=== PATIENT | female | born 1980 | race Caucasian/White ===

== ENCOUNTER 2017-01-29 16:37 | Emergency (ER) | payer MEDICAID ==
[2017-01-29 17:06] VITALS: BP 119/63
--- NOTE | 2017-01-29 17:10 | ER Document Report ---
ED Medical Screen (RME) - General Stated Complaint: SORE THROAT Notes: Patient complains of a sore throat for a couple weeks. Does have nasal congestion, no cough. No known fever. I have greeted and performed a rapid initial assessment of this patient. A comprehensive ED assessment and evaluation of the patient, analysis of test results and completion of the medical decision making process will be conducted by additional ED providers. TRAVEL OUTSIDE OF THE [place] IN LAST 30 DAYS: No - Related Data Allergies/Adverse Reactions: No Known Allergies Allergy (Verified 01/29/17 17:09) Past Medical History - Immunizations Immunizations up to date: No Hx Diphtheria, Pertussis, Tetanus Vaccination: No Physical Exam - Vital signs Vitals: Temp Pulse Resp BP Pulse Ox 98.6 F 83 18 119/63 98 01/29/17 17:02 01/29/17 17:02 01/29/17 17:02 01/29/17 17:02 01/29/17 17:02 - HEENT Notes: Row with mild erythema, no exudates. Course - Vital Signs Vital signs: Temp Pulse Resp BP Pulse Ox 98.6 F 83 18 119/63 98 01/29/17 17:02 01/29/17 17:02 01/29/17 17:02 01/29/17 17:02 01/29/17 17:02
--- NOTE | 2017-01-29 18:21 | ER Document Report ---
ED ENT - General Chief Complaint: Sore Throat Stated Complaint: SORE THROAT Mode of Arrival: Ambulatory Information source: Patient Notes: This is a 37-year-old healthy female who presents for evaluation of sore throat. She has had a sore throat off and on for a couple weeks but the past few days it has become more severe. Also last night she developed subjective fevers and chills. His morning she has had more pain with swallowing. She is still tolerating po food and drink without difficulty. She has had nausea but no vomiting. No known sick contacts. No recent travel. TRAVEL OUTSIDE OF THE [place] IN LAST 30 DAYS: No - Related Data Allergies/Adverse Reactions: No Known Allergies Allergy (Verified 01/29/17 17:09) Past Medical History - General Information source: Patient - Social History Smoking Status: Current Every Day Smoker Chew tobacco use (# tins/day): No Frequency of alcohol use: Occasional Drug Abuse: None Family History: Reviewed & Not Pertinent - Medical History Medical History: Negative Endocrine Medical History: Denies: Hx Diabetes Mellitus Type 2 Renal/ Medical History: Denies: Hx Peritoneal Dialysis Surgical Hx: Negative - Immunizations Immunizations up to date: No Hx Diphtheria, Pertussis, Tetanus Vaccination: No Review of Systems - Review of Systems Notes: REVIEW OF SYSTEMS: CONSTITUTIONAL : Subjective fever as per history of present illness. EENT: Denies eye, ear, or mouth pain or symptoms. Denies nasal or sinus congestion. Sore throat as per history of present illness CARDIOVASCULAR: Denies chest pain. RESPIRATORY: Denies cough, cold, or chest congestion. Denies shortness of breath, difficulty breathing, or wheezing. GASTROINTESTINAL: Denies abdominal pain. Nausea as per history of present illness denies vomiting or diarrhea. GENITOURINARY: Denies difficulty urinating, painful urination, burning, frequency, or blood in urine. FEMALE GENITOURINARY: Denies vaginal bleeding, abnormal or irregular periods. LMP: 3/5 MUSCULOSKELETAL: Denies neck or back pain or joint pain or swelling. SKIN: Denies rash or skin lesions. HEMATOLOGIC : Denies easy bruising or bleeding. LYMPHATIC: Denies swollen, enlarged glands. NEUROLOGICAL: Denies altered mental status or loss of consciousness. Denies headache. ALL OTHER SYSTEMS REVIEWED AND NEGATIVE. Physical Exam - Vital signs Vitals: Temp Pulse Resp BP Pulse Ox 98.6 F 83 18 119/63 98 01/29/17 17:02 01/29/17 17:02 01/29/17 17:02 01/29/17 17:02 01/29/17 17:02 - Notes Notes: PHYSICAL EXAMINATION: GENERAL: Well-appearing, well-nourished and in no acute distress. Pleasant and conversant. HEAD: Atraumatic, normocephalic. EYES: Pupils equal round and reactive to light, extraocular movements intact, sclera anicteric, conjunctiva are normal. ENT: Moist mucous membranes. Posterior oropharynx with erythema, no edema, but there are bilateral tonsillar exudates noted. Uvula is midline with no PARA OPERATOR NECK: Normal range of motion, supple with mild bilateral tender anterior cervical lymphadenopathy LUNGS: Breath sounds clear to auscultation bilaterally and equal. No wheezes rales or rhonchi. HEART: Regular rate and rhythm without murmurs ABDOMEN: Soft, nontender, normoactive bowel sounds. No guarding, no rebound. No masses appreciated. EXTREMITIES: Normal range of motion, no edema NEUROLOGICAL: Cranial nerves grossly intact. Normal speech. No gross focal motor or sensory deficits appreciated. PSYCH: Normal mood, normal affect. SKIN: Warm, Dry, normal turgor, no rashes or lesions noted. Course - Re-evaluation Re-evalutation: 01/29/17 18:22 Bicillin given in the ER. - Vital Signs Vital signs: Temp Pulse Resp BP Pulse Ox 98.6 F 83 18 119/63 98 01/29/17 17:02 01/29/17 17:02 01/29/17 17:02 01/29/17 17:02 01/29/17 17:02 Discharge - Discharge Clinical Impression: Exudative pharyngitis Condition: Stable Disposition: HOME, SELF-CARE Additional Instructions: SORE THROAT: Sore throats may be caused by viruses, bacteria, or fungi. Most are due to a virus, and must get better on their own. Bacterial sore throats, particularly those due to "strep," need treatment with antibiotics. If an antibiotic is prescribed, be sure to take the medication for a full 10 days. Failure to take the antibiotic can result in complications such as rheumatic fever. Sometimes, an injection of antibiotics is given instead of pills or liquid. This single "shot" is equal in effectiveness to the oral medication. To relieve symptoms, take acetaminophen for pain. Sip clear liquids frequently, or eat popsicles or ice chips. Anesthetic sprays or lozenges may help. Make sure the air in the room is not too dry. Avoid using decongestants or antihistamines. Call the doctor if there is no improvement in two days, or if you have difficulty breathing, increasing throat pain, high fever, rash, or frequent vomiting. FOLLOW-UP CARE: If you have been referred to a physician for follow-up care, call the physician s office for an appointment as you were instructed or within the next two days. If you experience worsening or a significant change in your symptoms, notify the physician immediately or return to the Emergency Department at any time for re-evaluation. Prescriptions: Ibuprofen [Motrin 600 Mg Tablet] 600 mg PO TID #15 tablet Forms: Smoking Cessation Education
[2017-01-29] MEDS ORDERED: PENICILLIN G BENZATHINE 1.2 MILLION UNIT/2 ML DISP.SYRIN IM ONE (18:23)
== END 2017-01-29 19:01 | disposition home or self-care (01) ==
LOC: ER 16:37
DX: J02.9 Acute pharyngitis, unspecified (principal); R50.9 Fever, unspecified; F17.200 Nicotine dependence, unspecified, uncomplicated; R11.0 Nausea
CPT/HCPCS: 99283; 96372; 87070; 87880; J0561

== ENCOUNTER 2018-05-22 12:03 | Emergency (ER) | payer MEDICAID ==
[2018-05-22] MEDS ORDERED: LIDOCAINE 1% INJ-PF (10 MG/ML) 30 ML SDV INJ ONE (12:39)
--- NOTE | 2018-05-22 12:41 | ER Document Report ---
ED Medical Screen (RME) - General Chief Complaint: Abscess Stated Complaint: LESIONS IN LEFT ARMPIT Time Seen by Provider: 05/22/18 12:38 Mode of Arrival: Ambulatory Information source: Patient Notes: 38-year-old female with no reported past medical history presents with complaint of left axillary pain and swelling that have been ongoing for 3 days. Patient states that she has had previous abscesses that have self resolved. She describes this as a burning throbbing pain and she is unable to put her arm down by her side. Patient denies history of MRSA. Last menstrual period was May 12, 2018 I have greeted and performed a rapid initial assessment of this patient. A comprehensive ED assessment and evaluation of the patient including analysis of labs and imaging ( if obtained) and completion of medical decision making will be conducted by an additional ED provider. PHYSICAL EXAMINATION: GENERAL: Well-appearing, well-nourished and in no acute distress. HEAD: Atraumatic, normocephalic. EYES: Pupils equal round extraocular movements intact, conjunctiva are normal. ENT: Nares patent NECK: Normal range of motion LUNGS: No respiratory distress Musculoskeletal: Normal range of motion NEUROLOGICAL: Normal speech, normal gait. PSYCH: Normal mood, normal affect. SKIN: Large area of induration, fluctuance, erythema and tenderness under the left axilla. TRAVEL OUTSIDE OF THE [place] IN LAST 30 DAYS: No - Related Data Allergies/Adverse Reactions: No Known Allergies Allergy (Verified 05/22/18 12:32) Past Medical History - Social History Chew tobacco use (# tins/day): No Frequency of alcohol use: None Drug Abuse: None Endocrine Medical History: Denies: Hx Diabetes Mellitus Type 2 Renal/ Medical History: Denies: Hx Peritoneal Dialysis - Immunizations Immunizations up to date: No Hx Diphtheria, Pertussis, Tetanus Vaccination: No Physical Exam - Vital signs Vitals: Temp Pulse Resp BP Pulse Ox 98.5 F 84 18 118/54 L 100 05/22/18 12:12 05/22/18 12:12 05/22/18 12:12 05/22/18 12:12 05/22/18 12:12 Course - Vital Signs Vital signs: Temp Pulse Resp BP Pulse Ox 98.5 F 84 18 118/54 L 100 05/22/18 12:12 05/22/18 12:12 05/22/18 12:12 05/22/18 12:12 05/22/18 12:12 Doctor's Discharge - Discharge Referrals: HOLLY GARCIA MD [Primary Care Provider] - Follow up as needed
--- NOTE | 2018-05-22 13:32 | ER Document Report ---
ED General - General Chief Complaint: Abscess Stated Complaint: LESIONS IN LEFT ARMPIT Time Seen by Provider: 05/22/18 12:38 Mode of Arrival: Ambulatory TRAVEL OUTSIDE OF THE [place] IN LAST 30 DAYS: No - HPI Notes: 38-year-old female presents with left-sided axillary abscess. Patient states proximal and once a year she gets some swelling and redness in this area but it goes away with compresses. Over the last several days had increasing pain and swelling more than usual. No drainage. Throbbing, aching pain, nonradiating. Gradual onset. No other modifying factors, no other associated symptoms, no other provocative or palliative factors. No history of MRSA - Related Data Allergies/Adverse Reactions: No Known Allergies Allergy (Verified 05/22/18 12:32) Past Medical History - General Information source: Patient - Social History Smoking Status: Current Every Day Smoker Chew tobacco use (# tins/day): No Frequency of alcohol use: None Drug Abuse: None Family History: Reviewed & Not Pertinent Patient has suicidal ideation: No Patient has homicidal ideation: No - Medical History Medical History: Negative Endocrine Medical History: Denies: Hx Diabetes Mellitus Type 2 Renal/ Medical History: Denies: Hx Peritoneal Dialysis - Immunizations Immunizations up to date: No Hx Diphtheria, Pertussis, Tetanus Vaccination: No Review of Systems - Review of Systems Notes: Review of systems as in history of present illness, otherwise no significant headache, chest pain, abdominal pain. Physical Exam - Vital signs Vitals: Temp Pulse Resp BP Pulse Ox 98.5 F 84 18 118/54 L 100 05/22/18 12:12 05/22/18 12:12 05/22/18 12:12 05/22/18 12:12 05/22/18 12:12 - Notes Notes: General: Well devloped, no acute distress. HEENT: Normocephalic, atraumatic. Pupils equal round reactive to light. Mucosa moist. No JVD. Chest: No trauma, normal excursion. Respiratory: Good air exchange, normal excursion. Cardiac: Regular rhythm Abdomen: Soft, benign. Nondistended. Back: No asymmetry or gross abnormality. Motor: Grossly normal power and tone. Neurologic: Alert, nonfocal. Vascular: Well perfused Skin: No petechiae or purpura Axillary region shows a approximately 3-1/2 x 5 cm area of irregular fluctuance , slight induration, minimal erythema. Course - Re-evaluation Re-evalutation: 05/22/18 13:34 Well-appearing female with axillary abscess, may be ingrown hair versus hidradenitis. Plan proceed with I&D, outpatient follow-up. No indication for antibiotics. No significant cellulitis component. Will treat with hydrocodone. 05/22/18 13:35 Risks and benefits were discussed, informed consent was obtained. After anesthesia locally with 1% lidocaine without epinephrine, a 3.5 cm incision is made with immediate return of a purulent white beige material. It is probed, no loculations. Wound is then rugated and packed, no complications. - Vital Signs Vital signs: Temp Pulse Resp BP Pulse Ox 98.5 F 84 18 118/54 L 100 05/22/18 12:12 05/22/18 12:12 05/22/18 12:12 05/22/18 12:12 05/22/18 12:12 Discharge - Discharge Clinical Impression: Abscess Condition: Good Disposition: HOME, SELF-CARE Instructions: Abscess ([facility]) Additional Instructions: Leave packing in for 2-3 days. After that, may remove and rinse several times daily Prescriptions: Hydrocodone/Acetaminophen [Hydrocodon-Acetaminophen 5-325] 1 each PO Q6 #12 tablet Referrals: HOLLY GARCIA MD [NO LOCAL MD] - Follow up in 3-5 days
[2018-05-22 14:00] VITALS: BP 119/53
== END 2018-05-22 14:00 | disposition home or self-care (01) ==
LOC: ER 12:03
PROC: 0H9CXZZ Drainage of Left Upper Arm Skin, External Approach (ICD-10-PCS; principal; 2018-05-22)
DX: L02.412 Cutaneous abscess of left axilla (principal); F17.200 Nicotine dependence, unspecified, uncomplicated
CPT/HCPCS: 99283; 10060; J3490

== ENCOUNTER 2019-03-15 06:29 | Inpatient (IN) | payer MEDICAID ==
[2019-03-15] MEDS ORDERED: RINGERS SOLUTION,LACTATED 300 ML IV ONE (06:39)
[2019-03-15] MEDS ORDERED: RINGERS SOLUTION,LACTATED 1,000 ML IV PRN (06:39)
[2019-03-15 07:14] LABS: ABSOLUTE BASOPHILS # (AUTO) 0.1 10^3/uL (0.0-0.2); ABSOLUTE EOSINOPHILS # (AUTO) 0.2 10^3/uL (0.0-0.6); ABSOLUTE LYMPHOCYTES (AUTO) 2.2 10^3/uL (0.5-4.7); ABSOLUTE NEUT (AUTO) 13.2 10^3/uL (1.7-8.2); BASOPHILS % (AUTO) 0.3 % (0-2); EOSINOPHILS % (AUTO) 1.2 % (0-6); HEMATOCRIT 33.6 % (36.0-47.0); HEMOGLOBIN 11.5 g/dL (12.0-15.5); LYMPHOCYTES % (AUTO) 13.1 % (13-45); MEAN CORPUSCULAR HEMOGLOBIN 33.5 pg (27.0-33.4); MEAN CORPUSCULAR HGB CONC 34.3 g/dL (32.0-36.0); MEAN CORPUSCULAR VOLUME 98 fl (80-97); MONOCYTES % (AUTO) 6.1 % (3-13); PLATELET COUNT 230 10^3/uL (150-450); RED BLOOD COUNT 3.45 10^6/uL (3.72-5.28); RED CELL DISTRIBUTION WIDTH 13.7 % (11.5-14.0); SEGMENTED NEUTROPHILS % (AUTO) 79.3 % (42-78); TOTAL CELLS COUNTED % (AUTO) 100 %; WHITE BLOOD COUNT 16.6 10^3/uL (4.0-10.5)
[2019-03-15] MEDS ORDERED: OXYTOCIN/NORMAL SALINE 20 UNIT/1,000 ML RTUINJ ONE ×2 (07:29→23:20)
[2019-03-15] MEDS ORDERED: MISOPROSTOL 0.2 MG TABLET ONE (07:29)
[2019-03-15] MEDS ORDERED: LIDOCAINE 1% INJ-PF (10 MG/ML) 30 ML SDV ONE (07:29)
[2019-03-15] MEDS: OXYTOCIN/NORMAL SALINE 20 UNIT/1,000 ML RTUINJ IV PRN ×2 (08:05→23:23)
[2019-03-15 08:37] LABS: APPEARANCE,URINE CLEAR; BILIRUBIN,URINE NEGATIVE (NEGATIVE); COLOR,URINE YELLOW; GLUCOSE, URINE NEGATIVE (NEGATIVE); KETONES,URINE NEGATIVE (NEGATIVE); LEUKOCYTE ESTERASE,URINE NEGATIVE (NEGATIVE); NITRITE,URINE NEGATIVE (NEGATIVE); PROTEIN,URINE NEGATIVE (NEGATIVE); URINE SPECIFIC GRAVITY 1.018; UROBILINOGEN,URINE NEGATIVE mg/dL (<2.0)
[2019-03-15 09:00] LABS: URINE AMPHETAMINES SCREEN NEGATIVE; URINE BARBITURATES SCREEN NEGATIVE; URINE BENZODIAZEPINES SCREEN NEGATIVE; URINE COCAINE SCREEN NEGATIVE; URINE METHADONE SCREEN NEGATIVE; URINE PHENCYCLIDINE SCREEN NEGATIVE
[2019-03-15 09:01] LABS: URINE MARIJUANA (THC) SCREEN UNCONFIRMED POSITIVE
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
[2019-03-15] MEDS ORDERED: NALBUPHINE HCL INJ 10 MG/1 ML AMPULE ONE (12:52)
[2019-03-15] MEDS ORDERED: PROMETHAZINE HCL INJ 25 MG/1 ML VIAL ONE (12:52)
[2019-03-15] MEDS ORDERED: NALBUPHINE HCL INJ 10 MG/1 ML AMPULE IV ONE (12:57)
[2019-03-15] MEDS ORDERED: PROMETHAZINE HCL INJ 25 MG/1 ML VIAL IV ONE (12:57)
[2019-03-15] MEDS ORDERED: EPHEDRINE SULFATE INJ 50 MG/1 ML AMPULE ONE (16:59)
[2019-03-15] MEDS ORDERED: FENTANYL/BUPIVACAINE/NS/PF 300 MCG/150 ML RTUINJ EPI ONE (16:59)
[2019-03-15] MEDS ORDERED: BUPIVACAINE HCL 0.25 % INJ/PF (2.5 MG/1 ML) 30 ML VIAL ONE (17:00)
[2019-03-15] MEDS ORDERED: ONDANSETRON HCL INJ/PF 4 MG/2 ML SDV ONE ×2 (21:59→22:36)
[2019-03-15] MEDS ORDERED: METHYLERGONOVINE MALEATE INJ/PF 0.2 MG/1 ML AMPULE ONE (23:06)
[2019-03-15] MEDS ORDERED: OXYTOCIN/NORMAL SALINE 20 UNIT/1,000 ML RTUINJ IV PRN ×2 (23:24→23:25)
[2019-03-15] MEDS ORDERED: DIPH/PERTUSS(ACELL)/TETANUS VAC/PF 0.5 ML SYR (>=10YO) IM PRN (23:25)
[2019-03-15] MEDS ORDERED: PROMETHAZINE HCL 25 MG SUPP.RECT PR PRN (23:25)
[2019-03-15] MEDS ORDERED: NA PHOS,M-B/NA PHOS,DI-BA (ADULT) 133 ML ENEMA PR PRN (23:25)
[2019-03-15] MEDS ORDERED: MAGNESIUM HYDROXIDE SUSP 30 ML UDCUP PO PRN (23:25)
[2019-03-15] MEDS ORDERED: BENZOCAINE/MENTHOL AEROSOL SPRAY 56 ML TOP PRN (23:25)
[2019-03-15] MEDS ORDERED: DIBUCAINE 1% OINTMENT 56 GM TP PRN (23:25)
[2019-03-15] MEDS ORDERED: DIPHENHYDRAMINE HCL 25 MG CAPSULE PO PRN (23:25)
[2019-03-15] MEDS ORDERED: MEASLES,MUMPS&RUBELLA VACC/PF 0.5 ML VIAL SUBCUT PRN (23:25)
[2019-03-15] MEDS ORDERED: ACETAMINOPHEN 325 MG TABLET PO PRN (23:25)
[2019-03-15] MEDS ORDERED: PSEUDOEPHEDRINE HCL 30 MG TABLET PO PRN (23:25)
[2019-03-15] MEDS ORDERED: GLYCERIN/WITCH HAZEL LEAF 1 EACH MED..WIPE TP PRN (23:25)
[2019-03-15] MEDS ORDERED: PROMETHAZINE HCL 25 MG TABLET PO PRN (23:25)
[2019-03-15] MEDS ORDERED: ACETAMINOPHEN WITH CODEINE #3 TABLET PO PRN (23:25)
[2019-03-15] MEDS ORDERED: ZOLPIDEM TARTRATE 5 MG TABLET PO PRN (23:25)
[2019-03-15] MEDS ORDERED: PROMETHAZINE HCL INJ 25 MG/1 ML VIAL IV PRN (23:25)
[2019-03-15] MEDS ORDERED: ACETAMINOPHEN WITH CODEINE #3 TABLET ONE (23:47)
[2019-03-15] MEDS: ACETAMINOPHEN WITH CODEINE #3 TABLET PO PRN (23:50)
[2019-03-15] MEDS ORDERED: METHYLERGONOVINE MALEATE INJ/PF 0.2 MG/1 ML AMPULE IM ONE (23:59)
[2019-03-15] MEDS ORDERED: MISOPROSTOL 0.1 MG TABLET PR ONE (23:59)
[2019-03-16] MEDS: IBUPROFEN 800 MG TABLET PO SCH ×3 (06:21→21:34)
[2019-03-16] MEDS: FAMOTIDINE 20 MG TABLET PO SCH ×3 (06:26→21:42)
[2019-03-16 07:18] LABS: HEMATOCRIT 29.5 % (36.0-47.0); HEMOGLOBIN 10.2 g/dL (12.0-15.5); MEAN CORPUSCULAR HEMOGLOBIN 33.9 pg (27.0-33.4); MEAN CORPUSCULAR HGB CONC 34.8 g/dL (32.0-36.0); MEAN CORPUSCULAR VOLUME 98 fl (80-97); PLATELET COUNT 198 10^3/uL (150-450); RED BLOOD COUNT 3.02 10^6/uL (3.72-5.28); RED CELL DISTRIBUTION WIDTH 13.7 % (11.5-14.0)
[2019-03-16 08:09] LABS: WHITE BLOOD COUNT 31.3 10^3/uL (4.0-10.5)
[2019-03-16] MEDS: DOCUSATE SODIUM 100 MG CAPSULE PO SCH ×2 (09:54→17:01)
[2019-03-16] MEDS: FERROUS SULFATE 325 MG TABLET PO SCH ×2 (09:54→17:01)
[2019-03-16] MEDS: PRENATAL VITAMIN W DHA CAPSULE PO SCH (09:54)
[2019-03-16] MEDS: CEFAZOLIN 2 GM/D5W RTU 2 GM/50 ML RTUPB IV SCH ×3 (09:55→21:34)
[2019-03-16] MEDS: SENNOSIDES/DOCUSATE 8.6-50 MG 1 EACH TABLET PO SCH (09:55)
--- NOTE | 2019-03-16 10:10 | PDOC PROGRESS REPORT ---
Subjective-OB Progress Note for:: 03/16/19 Physical Exam (OB) Vital Signs: Temp Pulse Resp BP Pulse Ox 98.1 F 89 16 91/60 L 99 03/16/19 08:11 03/16/19 08:11 03/16/19 08:11 03/16/19 08:11 03/16/19 08:11 Intake & Output 03/15/19 03/16/19 03/17/19 06:59 06:59 06:59 Intake Total 92 Output Total 1883 Balance -1791 Weight 85.8 kg - Lochia Lochia Amount: Small 10-25 ml Lochia Color: Rubra/Red - Abdomen Description: Soft, Round Hernia Present: No Bowel Sounds: Normoactive Flatus Presence: Present Stool: No Fundal Description: Firm, Midline Fundal Height: u/u - u/2 Objective-Diagnostic Laboratory: 03/16/19 06:35 03/16/19 06:35 WBC 31.3 H* RBC 3.02 L Hgb 10.2 L Hct 29.5 L MCV 98 H MCH 33.9 H MCHC 34.8 RDW 13.7 Plt Count 198
[2019-03-16] MEDS: ACETAMINOPHEN WITH CODEINE #3 TABLET PO PRN (10:17)
[2019-03-16 13:11] LABS: PATH REVIEW PATHOLOGIST REVIEWED
[2019-03-17] MEDS: CEFAZOLIN 2 GM/D5W RTU 2 GM/50 ML RTUPB IV SCH ×2 (03:29→09:07)
[2019-03-17] MEDS: IBUPROFEN 800 MG TABLET PO SCH (05:23)
[2019-03-17 08:15] VITALS: BP 97/54
[2019-03-17 08:40] LABS: ABSOLUTE BASOPHILS # (AUTO) 0.1 10^3/uL (0.0-0.2); ABSOLUTE EOSINOPHILS # (AUTO) 0.2 10^3/uL (0.0-0.6); ABSOLUTE LYMPHOCYTES (AUTO) 2.2 10^3/uL (0.5-4.7); ABSOLUTE NEUT (AUTO) 13.3 10^3/uL (1.7-8.2); BASOPHILS % (AUTO) 0.5 % (0-2); EOSINOPHILS % (AUTO) 1.4 % (0-6); HEMATOCRIT 25.8 % (36.0-47.0); HEMOGLOBIN 8.9 g/dL (12.0-15.5); LYMPHOCYTES % (AUTO) 13.1 % (13-45); MEAN CORPUSCULAR HEMOGLOBIN 33.5 pg (27.0-33.4); MEAN CORPUSCULAR HGB CONC 34.4 g/dL (32.0-36.0); MEAN CORPUSCULAR VOLUME 97 fl (80-97); PLATELET COUNT 201 10^3/uL (150-450); RED BLOOD COUNT 2.65 10^6/uL (3.72-5.28); RED CELL DISTRIBUTION WIDTH 13.7 % (11.5-14.0); TOTAL CELLS COUNTED % (AUTO) 100 %; WHITE BLOOD COUNT 16.8 10^3/uL (4.0-10.5)
[2019-03-17] MEDS: FAMOTIDINE 20 MG TABLET PO SCH (09:07)
[2019-03-17] MEDS: DOCUSATE SODIUM 100 MG CAPSULE PO SCH (09:08)
[2019-03-17] MEDS: SENNOSIDES/DOCUSATE 8.6-50 MG 1 EACH TABLET PO SCH (09:08)
[2019-03-17] MEDS: FERROUS SULFATE 325 MG TABLET PO SCH (09:08)
[2019-03-17] MEDS: PRENATAL VITAMIN W DHA CAPSULE PO SCH (09:08)
--- NOTE | 2019-03-17 10:47 | PDOC DISCHARGE SUMMARY ---
Final Diagnosis Discharge Date: 03/17/19 - Final Diagnosis (1) Cannabis abuse, unspecified Is this a current diagnosis for this admission?: Yes (2) Encounter for induction of labor Is this a current diagnosis for this admission?: Yes (3) First degree laceration of perineum during delivery, Is this a current diagnosis for this admission?: Yes (4) Shoulder (girdle) dystocia during labor and delivery, delivered Is this a current diagnosis for this admission?: Yes Discharge Data - Discharge Medication Prescriptions: Ibuprofen [Motrin 800 mg Tablet] 800 mg PO Q8HP PRN #60 tablet PRN Reason: Vit/Dha [ Multi + Dha Capsule] 1 cap PO DAILY #90 capsule Home Medications: Docusate Sodium [Colace 100 mg Capsule] 100 mg PO TID capsule 03/17/19 Ferrous Sulfate [Feosol 325 mg Tablet] 325 mg PO DAILY tablet 03/17/19 Ibuprofen [Motrin 800 mg Tablet] 800 mg PO Q8HP PRN #60 tablet 03/17/19 Vit/Dha [ Multi + Dha Capsule] 1 cap PO DAILY #90 capsule 03/17/19 Procedures: NST Intrapartum Procedure(s): Spontaneous Vaginal Delivery Complication(s): Laceration-Perineal Laceration-Degree: 1st - Diagnosis Test Laboratory: Temp Pulse Resp BP Pulse Ox 97.8 F 63 16 97/54 L 98 03/17/19 07:35 03/17/19 07:35 03/17/19 07:35 03/17/19 07:35 03/17/19 07:35 03/15/19 03/15/19 03/16/19 06:38 06:51 06:35 RBC 3.45 L 3.02 L Hgb 11.5 L 10.2 L Hct 33.6 L 29.5 L Urine Opiates Screen NEGATIVE 03/17/19 07:29 RBC 2.65 L Hgb 8.9 L Hct 25.8 L Urine Opiates Screen - Discharge information/Instructions Discharge Activity: Balance Activity w/Rest, Pelvic Rest Discharge Diet: Regular Disposition: HOME, SELF-CARE Follow up with: [facility] in: 4, Weeks
--- NOTE | 2019-03-23 08:43 | Delivery Summary ---
Del Sum A-C Datetime Report Generated by CPN: 03/23/2019 08:38 DELIVERY PERSONNEL DELIVERY PERSONNEL: [id number] Delivery Doctor:: Pham Trevino MD Labor and Delivery Nurse:: Yanique Shields RN Labor and Delivery Nurse:: Fiorella Rodriguez RN Brick Layer/SNUBBER: Genie Johnson, ST MATERNAL INFORMATION Delivery Anesthesia: Epidural Medications After Delivery: Pitocin Bolus-Please Comment; Pitocin Drip 20 Units/1000ml NSS; Methergine 0.2mg IM; Cytotec 1000mcg Per Rectum/Vagina Meds After Delivery Comment: Pitocin 20 units in 1 L NS bolusing per order Estimated Blood Loss (ml): 600 Maternal Complications: None Provider Comments: VFI delivered in LORI presentation. No nuchal cord. Head delivered then Neris and Suprapubic pressure with gentle downward movement delivered shoulder dystocia after 40sec. Body delivered easily. Placenta delivered intact spontaneously. Uterine atony (mostly lower uterine segment) improved with methergine placed into lower uterine segment and IV pitocin and 1000mcg of cytotec MD. 1st degree perineal laceration repaired in usual fashion. Catheter to be replaced due to intermittent lower uterine segment atony to maintain empty bladder. Mother and baby stable upon provider leaving the room. LABOR SUMMARY EDC: 03/08/2019 00:00 No. Babies in Womb: 1 Attempted: No Labor Anesthesia: Epidural LABOR INFORMATION Reason for Induction: Post Dates Onset of Labor: 03/15/2019 15:57 Complete Dilatation: 03/15/2019 22:29 Oxytocin: Induction Group B Beta Strep: Negative Antibiotics # of Doses: 0 Antibiotics Time of Last Dose: n/a Name of Antibiotic Given: n/a Steroids Given: None Reason Steroids Not Administered: Not Applicable MEMBRANES Membranes Rupture Method: Artificial Rupture of Membranes: 03/15/2019 15:57 Length of Rupture (hr): 7.03 Amniotic Fluid Color: Clear Amniotic Fluid Amount: Small Amniotic Fluid Odor: Normal STAGES OF LABOR Stage 1 hr: 6 Stage 1 min: 32 Stage 2 hr: 0 Stage 2 min: 30 Stage 3 hr: 24 Stage 3 min: 3 Total Time in Labor hr: 31 Total Time in Labor min: 5 VAGINAL DELIVERY Episiotomy: None Laceration #1: Perineal Laceration Extension #1: First Degree Laceration Repair: Yes Laceration Repair Note: 1st degree perineal laceration repaired in usual fashion Sponge Count Correct: Yes Sharps Count Correct: Yes Sharps Count Correct: Yes CSECTION DELIVERY Primary Indication: N/A Secondary Indication: N/A CSection Incidence: N/A Labor: N/A Elective: N/A CSection Incision: N/A BABY A INFORMATION Delivery Date/Time: 03/15/2019 22:59 Method of Delivery: Vaginal Born in Route : No : N/A Forceps: N/A Vacuum Extraction: N/A Shoulder Dystocia : Yes SHOULDER DYSTOCIA BABY A Delivery of Head: 03/15/2019 22:58 Time Head to Delivery : 1.0 1st Intervention to Resolve: McRobert's Maneuver 2nd Intervention to Resolve: Suprapubic Pressure Verify NO Fundal Pressure: No Fundal Pressure Applied Arm Under Symphisis at Del: Right Shoulder Dystocia Comments: 40 second shoulder dystocia PRESENTATION/POSITION BABY A Presentation: Cephalic Cephalic Presentation: Vertex Vertex Position: Right Occipital Anterior Breech Presentation: N/A PLACENTA INFORMATION BABY A Placenta Delivery Time : 03/16/2019 23:02 Placenta Method of Delivery: Spontaneous Placenta Method of Delivery: Spontaneous Placenta Status: Delivered SCORES BABY A Heart Rate 1 min: >100 bpm Resp Effort 1 min: Good Cry Reflex Irritability 1 min: Cough or Sneeze or Pulls Away Muscle Tone 1 min: Active Motion Color 1 min: Body Beatrice, Extremities Blue Resuscitation Effort 1 min: Tactile Stimulation SCORE 1 MIN: 9 Heart Rate 5 min: >100 bpm Resp Effort 5 min: Good Cry Reflex Irritability 5 min: Cough or Sneeze or Pulls Away Muscle Tone 5 min: Active Motion Color 5 min: Completely Beatrice Resuscitation Effort 5 min: Tactile Stimulation SCORE 5 MIN: 10 INFORMATION BABY A Gestational Age at Delivery: 41.0 Gestational Status: Late Term- 41- 41.6 Weeks Infant Outcome : Liveborn Infant Condition : Stable Infant Sex: Female Infant Sex: Female IDENTIFICATION BABY A Verification Date/Time: 03/15/2019 23:42 ID Band Number: [id number] Mother's Name Verified: Yes RN Verifying : ZhaneANA Vazquez Additional Verifying Personnel: Karan Shields RN WEIGHT/LENGTH BABY A Infant Birthweight (gm): 4173 Weight (lb): 9 Weight (oz): 3 Length (in): 20.75 Infant Length (cm): 52.71 CORD INFORMATION BABY A No. Cord Vessels: 3 Nuchal Cord : N/A Cord Blood Taken: Yes-For Eval (Mom's Blood Type - or O+) Suction: Mouth; Nose ASSESSMENT BABY A Infant Complications: None Physical Findings at Delivery: Molding of the Head Infant Respirations: Appears Normal Skin to Skin: Yes Skin to Skin: Yes Clerical Support Specialist/ALS Called : No Care By: Dane RodriguezKATIE Transferred To: Remains with Mother BABY B INFORMATION : N/A SIGNATURES Signature: with User ID: [email or web address]
== END 2019-03-17 13:27 | disposition home or self-care (01) | DRG 807 ==
LOC: LR 06:29 → 2S 03-16 01:09
PROVIDERS: ADMIT Obstetrics & Gynecology; ATTEND Student in an Organized Health Care Education/Training Program
PROC: 10E0XZZ Delivery of Products of Conception, External Approach (ICD-10-PCS; principal; 2019-03-15)
PROC: 0HQ9XZZ Repair Perineum Skin, External Approach (ICD-10-PCS; 2019-03-15)
DX: O99.324 Drug use complicating childbirth (principal); Z37.0 Single live birth; O70.0 First degree perineal laceration during delivery; O62.2 Other uterine inertia; F12.10 Cannabis abuse, uncomplicated; O66.0 Obstructed labor due to shoulder dystocia; O48.0 Post-term pregnancy; Z87.891 Personal history of nicotine dependence; Z3A.41 41 weeks gestation of pregnancy; Z62.810 Personal history of physical and sexual abuse in childhood
CPT/HCPCS: 36415; 80307; 80349; 81005; 85025; 85027; 86592; 86850; 86900; 86901; G0480; J0690; J2210; J2300; J2405; J2550; J2590; J3010; J3490